=== PATIENT | male | born 1955 | race Caucasian/White ===

== ENCOUNTER → 2017-07-24 | Outpatient (CLI) | payer OTHER ==
--- NOTE | 2017-07-25 12:00 | CPEEG ---
[f rep st] ELECTROENCEPHALOGRAM DATE OF STUDY: 07/24/2017 DATE OF INTERPRETATION: 07/25/2017. INTERPRETATION: Normal EEG during wakefulness and sleep. There were no potentially epileptogenic ab normalities present during the awake or sleep recording. REPORT: This EEG contains 10 Hz alpha activity in the posterior head regions. There was no abnormal activation at rest, during photic stimulation or hyperventilation. The patient became drowsy and fe ll asleep during the study. There was no abnormal activation during drowsiness, sleep, or during ivan es of arousal. /[id number]/MODL
== END ==
LOC: FCPNEURO 07:50
PROVIDERS: ATTEND Psychiatry & Neurology Clinical Neurophysiology
DX: R43.0 Anosmia (principal); R44.2 Other hallucinations

== ENCOUNTER → 2017-08-18 | Outpatient (CLI) | payer OTHER ==
--- NOTE | 2017-08-22 15:34 | CPEEG ---
[f rep st] ELECTROENCEPHALOGRAM ELECTROENCEPHALOGRAM DATE OF STUDY: 08/18/2017 DATE OF INTERPRETATION: 08/22/2017. INTERPRETATION: Normal EEG during wakefulness and sleep. There were no potentially epileptogenic ab normalities present in the recording. REPORT: This EEG contains 10 Hz alpha activity to the posterior head regions. There was no abnormal activation at rest or during photic stimulation hyperventilation. The patient became drowsy and fel l asleep during the study. There was no abnormal activation during drowsiness, sleep, or during time s of arousal. Copy requested to: Will Rojas /[id number]/MODL
== END ==
LOC: FCPNEURO 07:51
PROVIDERS: ATTEND Psychiatry & Neurology Clinical Neurophysiology
DX: R43.8 Other disturbances of smell and taste (principal)